=== PATIENT | female | born 1985 | race Caucasian/White ===

== ENCOUNTER 2020-08-05 10:04 | Outpatient (CLI) | payer OTHER, SELFPAY ==
--- NOTE | ~2020-08-05 | MR_ITS ---
EXAMINATION: MR lumbar spine wo con DATE: 08/05/2020 10:50 INDICATION: Lumbar neuropathy. TECHNIQUE: Magnetic resonance imaging (MRI) of the lumbar spine was performed without intravenous con trast. Sequences included sagittal T2-weighted FSE, sagittal T2-weighted FS FSE, sagittal T1-weighted FSE, and axial T2-weighted FSE. COMPARISON: Lumbar spine MRI 05/01/2019 FINDINGS: There is 8 degrees levocurvature of lumbar spine. Vertebral body heights are normal. There is mildly decreased disc height at L3-L4 and severely decreased disc height at L4-L5. The distal spin al cord signal intensity is normal. The conus medullaris is at L1. The following disc levels are spec ifically discussed: L1-L2: The disc does not extend beyond the endplate margin. There is mild bilateral facet joint osteo arthritis. There is no neural foraminal stenosis. There is no central canal stenosis. L2-L3: The disc does not extend beyond the endplate margin. There is moderate bilateral facet joint o steoarthritis. There is no neural foraminal stenosis. There is no central canal stenosis. L3-L4: The disc is bulging with superimposed right subarticular zone extrusion with mass effect on ri ght L4 nerve root. There is mild bilateral facet joint osteoarthritis. There is mild right and modera te left neural foraminal stenosis. There is mild central canal stenosis. L4-L5: The disc is bulging and has an annular fissure. There is moderate bilateral facet joint osteoa rthritis. There is moderate and mild left neural foraminal stenosis. There is mild central canal sten osis. L5-S1: There is a central protrusion. There is mild bilateral facet joint osteoarthritis. There is no neural foraminal stenosis. There is no central canal stenosis. IMPRESSION: 1. Slightly worsened severe lumbar spondylosis. Of note, an extrusion at L3-L4 exerts mass effect on right L4 nerve root. Reviewed, dictated and finalized at location A. N STUDIES PROFESSOR
== END 2020-08-05 10:05 | disposition home or self-care (01) ==
LOC: CHSIMG 10:05
PROVIDERS: PCP Family Medicine; Visit Provider Family Medicine
DX: M54.16 Radiculopathy, lumbar region (principal)
CPT/HCPCS: 72148

== ENCOUNTER 2021-01-15 09:34 | Outpatient (CLI) | payer OTHER, SELFPAY ==
--- NOTE | ~2021-01-15 | XR_ITS ---
EXAMINATION: XR knee RT 3V DATE: 01/15/2021 09:56 INDICATION: Right knee pain. TECHNIQUE: 3 views of right knee were obtained. COMPARISON: None. FINDINGS: Bone alignment is normal. No fracture. There is mild osteoarthritis of lateral compartment characterized by a tiny marginal osteophyte. No knee joint effusion. IMPRESSION: 1. Mild right knee osteoarthritis. Reviewed, dictated and finalized at location A.
== END 2021-01-15 09:35 | disposition home or self-care (01) ==
LOC: CHSIMG 09:36
PROVIDERS: PCP Family Medicine; Visit Provider Family Medicine
DX: M25.561 Pain in right knee (principal)
CPT/HCPCS: 73562

== ENCOUNTER → 2022-01-10 10:32 | Outpatient (CLI) | payer OTHER, SELFPAY ==
--- NOTE | ~2022-01-10 | MR_ITS ---
EXAMINATION: MR brain/brain stem wo/w con DATE: 01/10/2022 11:20 INDICATION: Paresthesias of skin. TECHNIQUE: Magnetic resonance imaging (MRI) of the brain and brainstem was performed without with 19 mL MultiHance intravenous contrast. COMPARISON: None. FINDINGS: There are greater than 30 total lesions of increased T2-weighted signal intensity in the br ain. Of these lesions, some are periventricular, some are juxtacortical, and none are infratentorial. None of the lesions enhance. There is no acute ischemic infarct or intracranial hemorrhage. The vent ricles are normal in size. The orbits are normal. There is mild mucosal thickening in the ethmoid sin uses. The mastoid air cells are normal. IMPRESSION: 1. Moderate nonspecific cerebral white matter disease. The differential diagnosis includes premature chronic small vessel ischemic disease (especially if the patient has cardiovascular risk factors), de myelinating disease such as multiple sclerosis, drug abuse, vasculitis, or reactive astrocytosis (gli osis) secondary to nonspecific etiology. Reviewed, dictated and finalized at location A. IMPRESSION: 1. Moderate nonspecific cerebral white matter disease. The differential diagnos is includes premature chronic small vessel ischemic disease (especially if the patient has cardiovascular risk factors), demyelinating disease such as multipl e sclerosis, drug abuse, vasculitis, or reactive astrocytosis (gliosis) seconda ry to nonspecific etiology.
== END ==
PROVIDERS: PCP Family Medicine; Visit Provider Family Medicine
DX: R20.2 Paresthesia of skin (principal); R90.82 White matter disease, unspecified
CPT/HCPCS: 70553; A9577

== ENCOUNTER 2022-01-15 20:00 | Outpatient (CLI) | payer OTHER, SELFPAY ==
--- NOTE | 2022-02-05 13:23 | WPDSLEEPSTUD ---
Sleep Study Date of Study: 01/15/22 Ordering Provider: Que De Leon MD Interpreting Physician: Misa Johns MD Sleep Study Type: Polysomnogram Height: 1.65 m Weight: 95.254 kg Body Mass Index: 34.9 Neck Circumference (inches): 15 [place]: 10 Reason for Sleep Study Fatigue, tiredness, was diagnosed with sleep apnea in the past Sleep History Vini Angulo is a 37-year-old female with a history of obstructive sleep apnea in the past. This improved but recently she has gained weight and has worsening fatigue. The fatigue is been present for several months and does not improve, no matter how much sleep she gets. She uses CPAP machine several years ago. She has started and anxiety medication. She rarely awakens from sleep feeling short of breath. She occasionally awakens at night with heartburn, belching or coughing. She rarely snores, rarely snores loudly enough that others complain about it. She occasionally has trouble sleeping with a cold. She rarely wakes up gasping for breath at night. She does not have breathing problems at night observed by others. She occasionally sweats excessively at night. She rarely notices her heart pounding or beating irregularly at night. She rarely falls asleep during the day and rarely falls asleep involuntarily. She never falls asleep while driving. She rarely has loss of muscle tone with strong emotion. She rarely has daytime difficulties due to excessive sleepiness. She does not feel paralyzed on waking or falling asleep and does not have vivid dreamlike scenes upon awakening or falling asleep. She does not feel afraid to go to sleep. She does not have nightmares. She rarely remembers her dreams. She occasionally has racing thoughts. She occasionally feels sad, depressed and anxious. She frequently has muscular tension. She does not notice parts of her body jerking and she does not kick at night. She occasionally has crawling and aching feelings in her legs. She frequently has leg pain at night. She rarely has any morning jaw pain. She rarely grinds her teeth during sleep. She occasionally is bothered by pain during the day, rarely awakened by pain at night. She frequently wakes up feeling stiff in the morning with sore achy muscles and pain in the neck and spine. She has headaches, concentration difficulties and she takes antacids regularly. Normal bedtime is Between 9:00 p.m. and 10:00 p.m., taking 30 minutes to 1 hour to fall asleep, typically waking 2-3 times at night to use the bathroom, let the dogs out, watch TV and take a snack. She is able to return to sleep within 30 minutes. She awakens for the day around 4:30 a.m.. On the weekends, bedtime is also 9-10 p.m. however she awakens later, 6-7 a.m.. She does not generally take naps. A short nap is not refreshing. She is drowsy in the morning for an hour. She feels better in the afternoon compared to other times of day. Habits: Never smoked tobacco. Caffeine 1 serving per day. No alcohol or recreational drugs. [facility] Past Medical History Medical History (Updated 02/06/22 @ 05:42 by Misa Johns MD) Acid reflux Anemia COPD (chronic obstructive pulmonary disease) Diabetes Hypertension IBS (irritable bowel syndrome) Surgical History Surgical History History of section History of gastric bypass [place] teeth removed Family History Family History Father Family history of obesity Family history of coronary artery disease, Onset Age: 54 Patient's father is Grandparent Family history of obesity Mother Family history of osteoporosis Family history of alcoholism Family history of arthritis Social History Social History Smoking status: Former smoker Second hand tobacco smoke exposure: No Sm
[2022-02-06 05:44] VITALS: BMI 34.9
== END 2022-01-17 00:40 | disposition home or self-care (01) ==
PROVIDERS: PCP Family Medicine; Visit Provider Family Medicine
DX: G47.30 Sleep apnea, unspecified (principal)
CPT/HCPCS: 95810

== ENCOUNTER 2022-01-16 08:34 | Outpatient (CLI) | payer OTHER, SELFPAY ==
--- NOTE | 2022-01-16 08:40 | PC.NURSE ---
Pt to room 202 amb per self. A&Ox3. Has no questions or concerns. Plan of care explained. Oriented to room. Call lagunas in reach. Reminded to call with needs.
[2022-01-16] MEDS: IRON SUCROSE COMPLEX 200 MG in SODIUM CHLORIDE 0.9% IV 250 ML 250 MG IVPB (09:05)
--- NOTE | 2022-01-16 10:21 | PC.NURSE ---
Venofer infused. Pt tolerated well. Has no complaints. Discharged to home amb per self.
== END 2022-01-16 08:35 | disposition home or self-care (01) ==
LOC: CHSTREATRM 08:39
PROVIDERS: PCP Family Medicine; Visit Provider Family Medicine
DX: D50.9 Iron deficiency anemia, unspecified (principal)
CPT/HCPCS: 96365; J1756; J7050

== ENCOUNTER 2022-01-31 08:28 | Outpatient (CLI) | payer OTHER, SELFPAY ==
[2022-01-31 08:47] VITALS: BMI 35.8
[2022-01-31 08:48] VITALS: BP 117/64; PULSE 72; RESP 14; TEMP 36.6; O2SAT 97
[2022-01-31] MEDS: IRON SUCROSE COMPLEX 200 MG in SODIUM CHLORIDE 0.9% IV 250 ML 166.67 MG IVPB (08:54)
--- NOTE | 2022-01-31 10:29 | PC.NURSE ---
Patient here for IV Venofer #2 of 4. Education given. No concerns voiced. IV Venofer administered. SEE MAR. Tolerated well. Safe exit of hospital. Will return Feb 20, 2022 0830 for #3.
== END 2022-01-31 08:29 | disposition home or self-care (01) ==
LOC: CHSTREATRM 08:31
PROVIDERS: PCP Family Medicine; Visit Provider Family Medicine
DX: D50.9 Iron deficiency anemia, unspecified (principal)
CPT/HCPCS: 96365; 96366; J1756; J7050

== ENCOUNTER 2022-02-20 08:25 | Outpatient (CLI) | payer OTHER, SELFPAY ==
[2022-02-20 08:35] LABS: Basophils Absolute Auto 0.03 K/mm3 (0.00-0.10); Basophils Percent Auto 0.4 % (0.0-1.0); Eosinophils Absolute Auto 0.16 K/mm3 (0.02-0.50); Eosinophils Percent Auto 2.4 % (1.0-6.0); Hematocrit 27.3 % (35.0-49.0); Hemoglobin 7.3 g/dL (12.0-15.0); Immature Granulocyte Absolute 0.03 K/mm3 (0.00-0.00); Immature Granulocyte Percent A 0.4 % (0.0-0.0); Lymphocytes Absolute Auto 2.29 K/mm3 (1.10-4.50); Mean Corpuscular HGB Conc 26.7 g/dL (32.0-36.0); Mean Corpuscular Hemoglobin 17.7 pg (27.0-31.0); Mean Corpuscular Volume 66.3 fL (78.0-102.0); Mean Platelet Volume 9.3 fl (9.2-11.8); Monocytes Percent Auto 7.4 % (2.0-11.0); Neutrophils Absolute Auto 3.7 K/mm3 (1.7-7.2); Neutrophils Percent Auto 55.4 % (50.0-70.0); Platelet Count Result 346 K/mm3 (150-420); Red Blood Count 4.12 M/mm3 (4.20-5.40); Red Cell Distribution Width 23.2 % (11.6-14.4); White Blood Count 6.7 K/mm3 (4.8-10.8)
[2022-02-20 08:45] VITALS: BMI 35.8
[2022-02-20 08:47] VITALS: BP 108/70; PULSE 56; RESP 14; TEMP 36.3; O2SAT 100
[2022-02-20] MEDS: IRON SUCROSE COMPLEX 200 MG in SODIUM CHLORIDE 0.9% IV 250 ML 166.67 MG IVPB (08:49)
--- NOTE | 2022-02-20 10:34 | PC.NURSE ---
Pt here for 3/4 IV venofer infusions.Has had no trouble with the first 2. No concerns voiced. IV venofer administered see AUG. Tolerated well. Safe exist of the hospital. Will return 03/05/22 at 0830 for 09/10.
== END 2022-02-20 08:26 | disposition home or self-care (01) ==
PROVIDERS: PCP Family Medicine; Visit Provider Family Medicine
DX: D50.9 Iron deficiency anemia, unspecified (principal)
CPT/HCPCS: 36415; 85025; 96365; 96366; J1756; J7050

== ENCOUNTER 2022-03-05 08:25 | Outpatient (CLI) | payer OTHER, SELFPAY ==
[2022-03-05 08:30] VITALS: BMI 35.8
[2022-03-05 08:38] LABS: Basophils Absolute Auto 0.03 K/mm3 (0.00-0.10); Basophils Percent Auto 0.4 % (0.0-1.0); Eosinophils Absolute Auto 0.12 K/mm3 (0.02-0.50); Eosinophils Percent Auto 1.6 % (1.0-6.0); Hematocrit 27.6 % (35.0-49.0); Hemoglobin 7.5 g/dL (12.0-15.0); Immature Granulocyte Absolute 0.04 K/mm3 (0.00-0.00); Immature Granulocyte Percent A 0.5 % (0.0-0.0); Lymphocytes Absolute Auto 2.12 K/mm3 (1.10-4.50); Lymphocytes Percent Auto 28.7 % (18.0-42.0); Mean Corpuscular HGB Conc 27.2 g/dL (32.0-36.0); Mean Corpuscular Hemoglobin 18.4 pg (27.0-31.0); Mean Corpuscular Volume 67.8 fL (78.0-102.0); Mean Platelet Volume 9.6 fl (9.2-11.8); Monocytes Percent Auto 6.8 % (2.0-11.0); Neutrophils Absolute Auto 4.6 K/mm3 (1.7-7.2); Platelet Count Result 380 K/mm3 (150-420); Red Blood Count 4.07 M/mm3 (4.20-5.40); Red Cell Distribution Width 24.6 % (11.6-14.4); White Blood Count 7.4 K/mm3 (4.8-10.8)
[2022-03-05 08:44] VITALS: BP 143/69; PULSE 72; RESP 14; TEMP 36.4; O2SAT 98
[2022-03-05] MEDS: IRON SUCROSE COMPLEX 200 MG in SODIUM CHLORIDE 0.9% IV 250 ML 166.67 MG IVPB (08:50)
== END 2022-03-05 08:26 | disposition home or self-care (01) ==
LOC: CHSTREATRM 08:28
PROVIDERS: PCP Family Medicine; Visit Provider Family Medicine
DX: D50.9 Iron deficiency anemia, unspecified (principal)
CPT/HCPCS: 36415; 85025; 96365; 96366; J1756; J7050

== ENCOUNTER 2022-04-02 01:32 | Day surgery (SDC) | payer OTHER, SELFPAY ==
[2022-03-18 14:47] VITALS: BMI 34.1
[2022-04-02 07:31] VITALS: BP 141/82; PULSE 71; RESP 20; TEMP 36.5; O2SAT 100
[2022-04-02] MEDS: LACTATED RINGERS 1,000 ML 150 ML IV CONT (07:51)
--- NOTE | 2022-04-02 07:53 | WPDANESEPPF ---
Anes - Initial Pre Proc Eval Procedure: Operation Date: 04/02/22 09:00 Proposed Procedures p Esophagogastroduodenoscopy & Colonoscopy - Rk Domingo MD Date/Time: 04/02/22 07:53 Surgeon: Rk Domingo MD Pre Op Diagnosis: LISA Patient Data Age: 37 Gender: F Height: 1.65 m Weight: 91.8 kg Last Vital Signs Temp 36.5 C 04/02/22 07:31 Pulse 71 04/02/22 07:31 Resp 20 04/02/22 07:31 BP 141/82 H 04/02/22 07:31 Pulse Ox 100 04/02/22 07:31 O2 Del Method Room Air 04/02/22 07:31 Allergies Allergy/AdvReac Type Severity Reaction Status Date / Time No Known Allergies Allergy Verified 04/02/22 07:31 Home Medications Medication Instructions Recorded Confirmed Type multivitamin,dr-xvev-onljlsly 1 tablet PO DAILY 05/24/20 03/18/22 History (Complete Multivitamin tablet) omeprazole 20 mg capsule,delayed 40 mg PO DAILY 05/24/20 03/18/22 History release sucralfate 1 gram tablet 1 g PO DAILY 05/24/20 03/18/22 History etonogestrel 68 mg subdermal 1 implant subdermal ONCE 08/14/20 03/18/22 History implant (Nexplanon) pregabalin 75 mg capsule (Lyrica) 75 mg PO TID 06/18/21 03/18/22 History escitalopram oxalate 5 mg tablet 10 mg PO DAILY 02/21/22 03/18/22 History (Lexapro) ropinirole 0.5 mg tablet 0.5 mg PO BID 02/21/22 03/18/22 History Patient hx anesthesia problems: none Family hx anesthesia problems: none Results Review: All pre-operative results and documents have been reviewed as part of the pre-operative evaluation. [facility] Past Medical History Medical History Acid reflux Anemia Blood in stool COPD (chronic obstructive pulmonary disease) Diabetes Hypertension IBS (irritable bowel syndrome) Iron deficiency anemia Surgical History Surgical History Gastric bypass status for obesity History of section History of gastric bypass [place] teeth removed Family History Family History Father Family history of obesity Family history of coronary artery disease, Onset Age: 54 Patient's father is Grandparent Family history of obesity Mother Family history of osteoporosis Family history of alcoholism Family history of arthritis Social History Social History Smoking status: Former smoker Tobacco type: cigarettes Second hand tobacco smoke exposure: No Smoking end date: 06/09/02 Alcohol intake: current Drinks per week: 5 Substance use: never Living arrangements: with family Spiritual care concerns: No Anes - Eval Final PreProcedure Day of Procedure 04/02/22 07:53 Patient weight: obese Heart: regular rate and rhythm Lungs: clear to auscultation Neurological: alert and oriented Last oral intake: >/= 8 hours ASA classification: II Emergent: no Anesthetic plan: proceed Anesthesia type and monitoring: general GIVS and standard monitoring Results Review: All pre-operative results and documents have been reviewed as part of the pre-operative evaluation. Informed Consent: The patient's anesthetic plan and its attendant risks and benefits were discussed with the patient/family/POA. Questions were solicited and answers provided to the satisfaction of the patient/family/POA.
--- NOTE | 2022-04-02 08:37 | PM.HPGS ---
History of Present Illness History of Present Illness Consent: Risks, benefits, and alternatives have been discussed and questions answered. Patient agrees to proceed with procedure. Chief complaint: LISA Narrative: David Siddiqi is a 37 year old female here for egd and colonoscopy, she had gastric bypass about 7 years ago, last EGD about 5 years ago ? curtis's and colonoscopy about 1 year ago and negative, she is using omeprazole and carafate. She is here because found to have LISA with hb mid 7 Review of Systems Constitutional: Constitutional: Denies headache(s) and Denies weakness Eyes: Eyes: Denies blurry vision ENT: Reports Normal hearing present, Denies headache(s) and Denies neck pain Cardiovascular: Cardiovascular: Denies chest pain and Denies dyspnea Respiratory: Respiratory: Denies dyspnea Gastrointestinal: Gastrointestinal: Reports no additional gastrointestinal complaints Genitourinary: Genitourinary: Denies dysuria Musculoskeletal: Musculoskeletal: Denies neck pain Integumentary/Breasts: Skin/Breast: Denies dry skin Neurologic: Reports Normal hearing present, Denies headache(s) and Denies weakness Psychiatric: Psychiatric: Denies anxiety Endocrine: Endocrine: Denies change in body appearance Hematologic/Lymphatic: Hematologic/Lymphatic: Denies easy bleeding Allergic/Immunologic: Allergic/Immunologic: Denies urticaria PMFSH Past Medical History Medical History Acid reflux Anemia Blood in stool COPD (chronic obstructive pulmonary disease) Diabetes Hypertension IBS (irritable bowel syndrome) Iron deficiency anemia Surgical History Surgical History Gastric bypass status for obesity History of section History of gastric bypass [place] teeth removed Family History Family History Father Family history of obesity Family history of coronary artery disease, Onset Age: 54 Patient's father is Grandparent Family history of obesity Mother Family history of osteoporosis Family history of alcoholism Family history of arthritis Social History Social History Smoking status: Former smoker Tobacco type: cigarettes Second hand tobacco smoke exposure: No Smoking end date: 06/09/02 Alcohol intake: current Drinks per week: 5 Substance use: never Living arrangements: with family Spiritual care concerns: No Meds Home Medications and Allergies Home Medications Medication Instructions Recorded Confirmed Type multivitamin,ob-nuqd-bqgedumx 1 tablet PO DAILY 05/24/20 03/18/22 History (Complete Multivitamin tablet) omeprazole 20 mg capsule,delayed 40 mg PO DAILY 05/24/20 03/18/22 History release sucralfate 1 gram tablet 1 g PO DAILY 05/24/20 03/18/22 History etonogestrel 68 mg subdermal 1 implant subdermal ONCE 08/14/20 03/18/22 History implant (Nexplanon) pregabalin 75 mg capsule (Lyrica) 75 mg PO TID 06/18/21 03/18/22 History escitalopram oxalate 5 mg tablet 10 mg PO DAILY 02/21/22 03/18/22 History (Lexapro) ropinirole 0.5 mg tablet 0.5 mg PO BID 02/21/22 03/18/22 History Allergies Allergy/AdvReac Type Severity Reaction Status Date / Time No Known Allergies Allergy Verified 04/02/22 07:31 Vital Signs Vital Signs - 24 hr 04/02/22 07:31 Temperature 97.7 F Pulse Rate 71 Respiratory Rate 20 Blood Pressure 141/82 H Pulse Oximetry 100 Oxygen Delivery Room Air Exam Const: General: comfortable and no acute distress HENMT: Face/Nose/Sinus: Normal nares present Eyes: General: appearance normal, both eyes and all related structures Neck: Neck: no JVD Resp: Auscultation: clear to auscultation bilaterally Cardio: Rate: regular rate Rhythm: regular rhythm GI: Inspection: non-dis
--- NOTE | 2022-04-02 08:50 | SUR.OPER ---
EGD end 843 COLONOSCOPY START 848
[2022-04-02 09:01] VITALS: BP 134/77; PULSE 58; RESP 18; O2SAT 100
[2022-04-02 09:11] VITALS: BP 118/86; PULSE 60; RESP 18; O2SAT 100
[2022-04-02 09:21] VITALS: BP 139/99; PULSE 50; RESP 18; O2SAT 100
== END 2022-04-02 09:26 | disposition home or self-care (01) ==
PROVIDERS: PCP Family Medicine; Visit Provider Internal Medicine Gastroenterology
PROC: 0DJ08ZZ Inspection of Upper Intestinal Tract, Via Natural or Artificial Opening Endoscopic (ICD-10-PCS; CPT 43235; principal; 2022-04-02 09:00)
DX: D50.9 Iron deficiency anemia, unspecified (principal); K57.30 Diverticulosis of large intestine without perforation or abscess without bleeding; K64.8 Other hemorrhoids; K28.9 Gastrojejunal ulcer, unspecified as acute or chronic, without hemorrhage or perforation; Z98.84 Bariatric surgery status; K21.9 Gastro-esophageal reflux disease without esophagitis; K92.1 Melena; J44.9 Chronic obstructive pulmonary disease, unspecified; E11.9 Type 2 diabetes mellitus without complications; I10 Essential (primary) hypertension; K58.9 Irritable bowel syndrome, unspecified; Z87.891 Personal history of nicotine dependence; E66.9 Obesity, unspecified; Z68.33 Body mass index [BMI] 33.0-33.9, adult
CPT/HCPCS: 45378; 43239; 88305; 88342; J2704; J7120

== ENCOUNTER 2022-05-10 08:13 | Outpatient (CLI) | payer OTHER, SELFPAY ==
[2022-05-10 08:21] VITALS: BMI 35.8
[2022-05-10 08:29] LABS: Basophils Absolute Auto 0.03 K/mm3 (0.00-0.10); Basophils Percent Auto 0.4 % (0.0-1.0); Eosinophils Absolute Auto 0.17 K/mm3 (0.02-0.50); Eosinophils Percent Auto 2.4 % (1.0-6.0); Hematocrit 26.9 % (35.0-49.0); Hemoglobin 7.5 g/dL (12.0-15.0); Immature Granulocyte Absolute 0.03 K/mm3 (0.00-0.00); Immature Granulocyte Percent A 0.4 % (0.0-0.0); Lymphocytes Absolute Auto 2.12 K/mm3 (1.10-4.50); Lymphocytes Percent Auto 29.9 % (18.0-42.0); Mean Corpuscular HGB Conc 27.9 g/dL (32.0-36.0); Mean Corpuscular Hemoglobin 18.8 pg (27.0-31.0); Mean Corpuscular Volume 67.4 fL (78.0-102.0); Monocytes Absolute Auto 0.53 K/mm3 (0.10-0.90); Monocytes Percent Auto 7.5 % (2.0-11.0); Neutrophils Absolute Auto 4.2 K/mm3 (1.7-7.2); Neutrophils Percent Auto 59.4 % (50.0-70.0); Platelet Count Result 309 K/mm3 (150-420); Red Blood Count 3.99 M/mm3 (4.20-5.40); White Blood Count 7.1 K/mm3 (4.8-10.8)
[2022-05-10 08:30] VITALS: BP 136/56; PULSE 66; RESP 14; TEMP 36.6; O2SAT 98
[2022-05-10] MEDS: IRON SUCROSE COMPLEX 200 MG in SODIUM CHLORIDE 0.9% IV 250 ML 125 MG IVPB (08:30)
--- NOTE | 2022-05-10 11:39 | PC.NURSE ---
Patient here for #1 of 4 biweekly IV Venofer infusions. Education given. No concerns voiced. Reports has had many Iron infusions. IV Venofer administered. SEE MAR. Tolerated well. Will return Fri05/24/22 at 0800 for #2. Safe exit of hospital.
== END 2022-05-10 08:14 | disposition home or self-care (01) ==
LOC: CHSTREATRM 08:16
PROVIDERS: PCP Family Medicine; Visit Provider Family Medicine
DX: D50.9 Iron deficiency anemia, unspecified (principal)
CPT/HCPCS: 36415; 85025; 96365; 96366; J1756; J7050

== ENCOUNTER 2022-05-24 08:14 | Outpatient (CLI) | payer OTHER, SELFPAY ==
[2022-05-24 08:24] VITALS: BMI 35.8
[2022-05-24] MEDS: IRON SUCROSE COMPLEX 200 MG in SODIUM CHLORIDE 0.9% IV 250 ML 125 MG IVPB (08:30)
[2022-05-24 08:31] LABS: Basophils Absolute Auto 0.03 K/mm3 (0.00-0.10); Basophils Percent Auto 0.4 % (0.0-1.0); Eosinophils Percent Auto 2.6 % (1.0-6.0); Hematocrit 29.4 % (35.0-49.0); Hemoglobin 8.2 g/dL (12.0-15.0); Immature Granulocyte Absolute 0.04 K/mm3 (0.00-0.00); Immature Granulocyte Percent A 0.5 % (0.0-0.0); Lymphocytes Absolute Auto 2.84 K/mm3 (1.10-4.50); Lymphocytes Percent Auto 36.5 % (18.0-42.0); Mean Corpuscular HGB Conc 27.9 g/dL (32.0-36.0); Mean Corpuscular Volume 68.1 fL (78.0-102.0); Mean Platelet Volume 9.6 fl (9.2-11.8); Monocytes Absolute Auto 0.48 K/mm3 (0.10-0.90); Monocytes Percent Auto 6.2 % (2.0-11.0); Neutrophils Absolute Auto 4.2 K/mm3 (1.7-7.2); Neutrophils Percent Auto 53.8 % (50.0-70.0); Platelet Count Result 399 K/mm3 (150-420); Red Blood Count 4.32 M/mm3 (4.20-5.40); Red Cell Distribution Width 21.4 % (11.6-14.4); White Blood Count 7.8 K/mm3 (4.8-10.8)
[2022-05-24 08:33] VITALS: BP 137/64; PULSE 78; RESP 14; TEMP 36.4; O2SAT 99
--- NOTE | 2022-05-24 10:52 | PC.NURSE ---
Patient here for IV Venofer #2 of 4 q 2 weeks. No concerns. IV Venofer administered. SEE MAR. Tolerated well. Safe exit of Hospital. Will return 06/06/22 at 0800.
== END 2022-05-24 08:15 | disposition home or self-care (01) ==
LOC: CHSTREATRM 08:16
PROVIDERS: PCP Family Medicine; Visit Provider Family Medicine
DX: D64.9 Anemia, unspecified (principal)
CPT/HCPCS: 36415; 85025; 96365; 96366; J1756; J7050

== ENCOUNTER 2022-06-07 08:09 | Outpatient (CLI) | payer OTHER, SELFPAY ==
[2022-06-07 08:22] VITALS: BMI 35.8
[2022-06-07 08:40] VITALS: BP 130/71; PULSE 72; RESP 14; TEMP 36.3; O2SAT 97
[2022-06-07] MEDS: IRON SUCROSE COMPLEX 200 MG in SODIUM CHLORIDE 0.9% IV 250 ML 125 MG IVPB (08:40)
[2022-06-07 08:48] LABS: Basophils Absolute Auto 0.04 K/mm3 (0.00-0.10); Basophils Percent Auto 0.6 % (0.0-1.0); Eosinophils Absolute Auto 0.21 K/mm3 (0.02-0.50); Eosinophils Percent Auto 2.9 % (1.0-6.0); Hematocrit 29.1 % (35.0-49.0); Hemoglobin 8.4 g/dL (12.0-15.0); Immature Granulocyte Absolute 0.03 K/mm3 (0.00-0.00); Immature Granulocyte Percent A 0.4 % (0.0-0.0); Lymphocytes Absolute Auto 2.47 K/mm3 (1.10-4.50); Lymphocytes Percent Auto 34.3 % (18.0-42.0); Mean Corpuscular HGB Conc 28.9 g/dL (32.0-36.0); Mean Corpuscular Volume 69.1 fL (78.0-102.0); Monocytes Absolute Auto 0.39 K/mm3 (0.10-0.90); Monocytes Percent Auto 5.4 % (2.0-11.0); Neutrophils Absolute Auto 4.1 K/mm3 (1.7-7.2); Neutrophils Percent Auto 56.4 % (50.0-70.0); Platelet Count Result 287 K/mm3 (150-420); Red Blood Count 4.21 M/mm3 (4.20-5.40); Red Cell Distribution Width 23.8 % (11.6-14.4); White Blood Count 7.2 K/mm3 (4.8-10.8)
--- NOTE | 2022-06-07 10:35 | PC.NURSE ---
Patient here for #3 of 4 IV Venofer infusions. No concerns voiced. IV Venofer administered. SEE MAR. Tolerated well. Safe exit of hospital. Will return 06/21/21 at 0830 for #4.
== END 2022-06-07 08:10 | disposition home or self-care (01) ==
PROVIDERS: PCP Family Medicine; Visit Provider Family Medicine
DX: D50.9 Iron deficiency anemia, unspecified (principal)
CPT/HCPCS: 36415; 85025; 96365; 96366; J1756; J7050

== ENCOUNTER 2022-06-21 08:22 | Outpatient (CLI) | payer OTHER, SELFPAY ==
[2022-06-21 08:26] VITALS: BMI 35.8
[2022-06-21] MEDS: IRON SUCROSE COMPLEX 200 MG in SODIUM CHLORIDE 0.9% IV 250 ML 125 MG IVPB (08:35)
[2022-06-21 08:39] LABS: Basophils Absolute Auto 0.03 K/mm3 (0.00-0.10); Basophils Percent Auto 0.4 % (0.0-1.0); Eosinophils Absolute Auto 0.15 K/mm3 (0.02-0.50); Eosinophils Percent Auto 2.2 % (1.0-6.0); Hemoglobin 9.5 g/dL (12.0-15.0); Immature Granulocyte Absolute 0.06 K/mm3 (0.00-0.00); Immature Granulocyte Percent A 0.9 % (0.0-0.0); Lymphocytes Absolute Auto 1.98 K/mm3 (1.10-4.50); Lymphocytes Percent Auto 28.9 % (18.0-42.0); Mean Corpuscular HGB Conc 28.8 g/dL (32.0-36.0); Mean Corpuscular Hemoglobin 20.3 pg (27.0-31.0); Mean Corpuscular Volume 70.7 fL (78.0-102.0); Mean Platelet Volume 10.1 fl (9.2-11.8); Monocytes Absolute Auto 0.46 K/mm3 (0.10-0.90); Monocytes Percent Auto 6.7 % (2.0-11.0); Neutrophils Absolute Auto 4.2 K/mm3 (1.7-7.2); Neutrophils Percent Auto 60.9 % (50.0-70.0); Platelet Count Result 348 K/mm3 (150-420); Red Blood Count 4.67 M/mm3 (4.20-5.40); Red Cell Distribution Width 25.5 % (11.6-14.4); White Blood Count 6.8 K/mm3 (4.8-10.8)
[2022-06-21 08:41] VITALS: BP 128/69; PULSE 78; RESP 14; TEMP 36.6; O2SAT 99
--- NOTE | 2022-06-21 10:36 | PC.NURSE ---
Patient here for #4 of 4 IV Venofer infusions. No concerns voiced. IV Venofer administered. see MAR. Safe exit of hospital.
== END 2022-06-21 08:23 | disposition home or self-care (01) ==
LOC: CHSTREATRM 08:25
PROVIDERS: PCP Family Medicine; Visit Provider Family Medicine
DX: D50.9 Iron deficiency anemia, unspecified (principal)
CPT/HCPCS: 36415; 85025; 96365; 96366; 96367; J1756; J7050

== ENCOUNTER 2022-09-23 07:21 | Outpatient (CLI) | payer OTHER, SELFPAY ==
[2022-09-23 07:32] LABS: Basophils Absolute Auto 0.04 K/mm3 (0.00-0.10); Basophils Percent Auto 0.5 % (0.0-1.0); Eosinophils Absolute Auto 0.19 K/mm3 (0.02-0.50); Eosinophils Percent Auto 2.3 % (1.0-6.0); Hemoglobin 10.4 g/dL (12.0-15.0); Immature Granulocyte Absolute 0.03 K/mm3 (0.00-0.00); Immature Granulocyte Percent A 0.4 % (0.0-0.0); Lymphocytes Absolute Auto 2.36 K/mm3 (1.10-4.50); Lymphocytes Percent Auto 28.1 % (18.0-42.0); Mean Corpuscular HGB Conc 29.7 g/dL (32.0-36.0); Mean Corpuscular Hemoglobin 23.2 pg (27.0-31.0); Mean Corpuscular Volume 78.1 fL (78.0-102.0); Mean Platelet Volume 9.9 fl (9.2-11.8); Monocytes Absolute Auto 0.54 K/mm3 (0.10-0.90); Monocytes Percent Auto 6.4 % (2.0-11.0); Neutrophils Absolute Auto 5.2 K/mm3 (1.7-7.2); Neutrophils Percent Auto 62.3 % (50.0-70.0); Platelet Count Result 346 K/mm3 (150-420); Red Blood Count 4.48 M/mm3 (4.20-5.40); Red Cell Distribution Width 18.1 % (11.6-14.4); White Blood Count 8.4 K/mm3 (4.8-10.8)
[2022-09-23 08:47] LABS: Ferritin 8 ng/mL (8-252); Iron 44 ug/dL (50-170); Percent Iron Saturation 9 % (12-57)
== END 2022-09-23 07:22 | disposition home or self-care (01) ==
LOC: CHSLAB 07:22
PROVIDERS: PCP Family Medicine; Visit Provider Family Medicine
DX: D50.9 Iron deficiency anemia, unspecified (principal); I10 Essential (primary) hypertension
CPT/HCPCS: 36415; 82728; 83540; 83550; 85025

== ENCOUNTER 2022-09-26 08:03 | Outpatient (CLI) | payer OTHER, SELFPAY ==
--- NOTE | ~2022-09-26 | CT_ITS ---
EXAMINATION: CT abdomen pelvis w con DATE: 09/26/2022 09:04 INDICATION: Abdominal cramping with nausea and vomiting and elevated lipase. Fatigue and anemia with blood in stools. TECHNIQUE: Computed tomography (CT) of the abdomen and pelvis was performed with 100 mL Omnipaque-350 intravenous contrast. Automated exposure control and iterative reconstruction technique were employe d. The dose-length product was 1257.74 mGy-cm. COMPARISON: None FINDINGS: Minimal discoid atelectasis at the lingula. Heart size is normal. No pericardial or pleural effusion. Small sliding-type hiatal hernia. Postoperative change of an antecolic Ricardo-en-Y gastric bypass proc edure. There appears to be an ulceration with inflammatory stranding of the right limb located within 2 cm of the gastrojejunal anastomosis. Peripherally corticated heterotopic ossification likely relat ed to fat necrosis overlying the anterior margin of the liver. Liver, gallbladder, spleen, pancreas, bilateral adrenal glands and kidneys are normal. Small fat-containing umbilical hernia. Mild divertic ulosis along the descending colon without adjacent inflammatory change to suggest diverticulitis. No bowel obstruction. Normal appendix. Bladder, uterus and bilateral ovaries are unremarkable. There is a multi lobulated complex cystic mass which measures 8.8 x 5.7 x 6.6 cm in the posterior inf erior right pelvis, the cephalad margin which is positioned in the perirectal fat but which appears t o extend into and across the ileocolic changes muscle with a component of the lesion extending into t he subcutaneous fat along the caudal right side of the gluteal cleft. Many of the lobular components of the lesion demonstrate central fluid attenuation however there has components located closer to th e tip of the coccyx which demonstrate higher attenuation, unclear whether complex fluid or soft tissu e. No free intraperitoneal gas or fluid. No pathologically enlarged abdominal or pelvic lymphadenopat hy. Mild lumbar levocurvature with severe spondylosis. IMPRESSION: 1. Ricardo-en-Y gastric bypass procedure with inflammatory stranding surrounding an ulceration at the pr oximal Ricardo limb within 2 cm the gastrojejunal anastomosis. No abscess or free intraperitoneal gas. 2. Indeterminate 8.8 x 5.7 x 6.6 cm right perirectal complex cystic mass. Differential would include a tail gut cyst, lymphangioma or other vascular malformation, teratoma, rectal duplication cyst or mu cinous adenocarcinoma of the rectum. Consider further evaluation with pre and postcontrast MRI to det ermine whether there are solid enhancing soft tissue components. 3. Small sliding-type hiatal hernia. 4. Small Fat-containing umbilical hernia. Reviewed, dictated and finalized at location A. IMPRESSION: 1. Ricardo-en-Y gastric bypass procedure with inflammatory stranding surrounding a n ulceration at the proximal Ricardo limb within 2 cm the gastrojejunal anastomosi s. No abscess or free intraperitoneal gas. 2. Indeterminate 8.8 x 5.7 x 6.6 cm right perirectal complex cystic mass. Diffe rential would include a tail gut cyst, lymphangioma or other vascular malformat ion, teratoma, rectal duplication cyst or mucinous adenocarcinoma of the rectum . Consider further evaluation with pre and postcontrast MRI to determine whethe r there are solid enhancing soft tissue components. 3. Small sliding-type hiatal hernia. 4. Small Fat-containing umbilical hernia.
[2022-09-26 08:50] LABS: Estimated Glomerular Filt Rate > 60
== END 2022-09-26 08:04 | disposition home or self-care (01) ==
LOC: CHSIMG 08:06
PROVIDERS: PCP Family Medicine; Visit Provider Family Medicine
DX: R74.8 Abnormal levels of other serum enzymes (principal); Z98.84 Bariatric surgery status; R19.09 Other intra-abdominal and pelvic swelling, mass and lump; K44.9 Diaphragmatic hernia without obstruction or gangrene; K42.9 Umbilical hernia without obstruction or gangrene
CPT/HCPCS: 74177; Q9967

== ENCOUNTER 2022-11-30 06:56 | Outpatient (CLI) | payer OTHER, SELFPAY ==
--- NOTE | ~2022-11-30 | MR_ITS ---
MRI of the abdomen: Clinical indication: Abdominal pain, history of bariatric surgery. Technique: Coronal SSFSE ARC, WATER:coronal LAVA-FLEX, Coronal 2D FIESTA FatSat, Axial SSFSE BH ARC, Axial 3D DualEcho BH, Axial SSFSE-IR, Axial DWI b=500, Axial 2D FIESTA FatSat, pre and dynamic postco ntrast Axial LAVA ARC, postcontrast Coronal In and Opposed phase LAVA FLEX.. Following intravenous ad ministration of 20 cc MultiHance gadolinium, T1-weighted fat-sat imaging was performed in the axial a nd coronal planes. Findings: Gallbladder is unremarkable. The common bile duct is normal in course and caliber. No filli ng defects are seen within the CBD. No evidence of intrahepatic biliary ductal dilatation. The pancre atic duct is normal in size. Liver, spleen, pancreas, adrenals, kidneys appear normal. The aorta and the paraaortic regions appear normal. No abnormal postcontrast enhancement seen. Impression: No significant abnormality identified. Reviewed, dictated and finalized at [facility]. Impression: No significant abnormality identified.
--- NOTE | ~2022-11-30 | MR_ITS ---
MRI of the pelvis CLINICAL HISTORY: Pelvic mass COMPARISON: Prior CT dated 09/26/2022 TECHNIQUE: Coronal STIR images, sagittal T1-weighted images, and axial T1-weighted, T1 fat-sat, and T 2 fat-sat images were performed. Following intravenous administration of 20 cc MultiHance gadolinium, T1-weighted fat-sat imaging was performed in the axial, coronal, and sagittal planes. FINDINGS: In the low right side of the pelvis, again identified is a multiloculated cystic mass along the right side of the perirectal region extending into the right ischiorectal fossa, just posterior to the right side of the uterus. Lesion measures up to approximately 7.6 x 4.8 x 9.2 cm in extent. Th ere is thin enhancement of the kwong of the cystic lesion. No solid or nodular enhancement identified . Uterus and ovaries are unremarkable. No ascites. Urinary bladder unremarkable. No lymphadenopathy suze dent. Small fat-containing umbilical hernia noted. IMPRESSION: 7.6 x 4.8 x 9.2 cm multiloculated cystic mass in the low right pelvis/perirectal region, essentially unchanged as compared to prior CT scan. No solid or nodular enhancing components are seen. Findings s uggest a benign lesion, such as lymphangioma or other vascular malformation, duplication cyst, or oth er benign cystic mass. Malignant neoplastic lesion felt to be unlikely. Consider follow-up exam to re assess. Reviewed, dictated and finalized at location M. IMPRESSION: 7.6 x 4.8 x 9.2 cm multiloculated cystic mass in the low right pelvis/perirecta l region, essentially unchanged as compared to prior CT scan. No solid or nodul ar enhancing components are seen. Findings suggest a benign lesion, such as lym phangioma or other vascular malformation, duplication cyst, or other benign cys tic mass. Malignant neoplastic lesion felt to be unlikely. Consider follow-up e xam to reassess.
== END 2022-11-30 06:57 | disposition home or self-care (01) ==
LOC: CHSIMG 06:58
PROVIDERS: PCP Family Medicine
DX: R10.9 Unspecified abdominal pain (principal); R19.00 Intra-abdominal and pelvic swelling, mass and lump, unspecified site; Z98.84 Bariatric surgery status
CPT/HCPCS: 72197; 74183; A9577

== ENCOUNTER 2023-09-22 07:22 | Outpatient (CLI) | payer OTHER, SELFPAY ==
[2023-09-22 07:48] LABS: Basophils Absolute Auto 0.03 K/mm3 (0.00-0.10); Basophils Percent Auto 0.4 % (0.0-1.0); Eosinophils Percent Auto 1.5 % (1.0-6.0); Hematocrit 30.5 % (35.0-49.0); Hemoglobin 8.6 g/dL (12.0-15.0); Immature Granulocyte Absolute 0.03 K/mm3 (0.00-0.00); Immature Granulocyte Percent A 0.4 % (0.0-0.0); Immature Reticulocyte Fraction 23.8 % (2.0-16.52); Lymphocytes Absolute Auto 2.28 K/mm3 (1.10-4.50); Lymphocytes Percent Auto 33.1 % (18.0-42.0); Mean Corpuscular HGB Conc 28.2 g/dL (32-36); Mean Corpuscular Hemoglobin 19.9 pg (27.0-31.0); Mean Corpuscular Volume 70.4 fL (78.0-102.0); Monocytes Absolute Auto 0.45 K/mm3 (0.10-0.90); Monocytes Percent Auto 6.5 % (2.0-11.0); Neutrophils Absolute Auto 3.99 K/mm3 (1.70-7.20); Neutrophils Percent Auto 58.1 % (50.0-70.0); Platelet Count Result 295 K/mm3 (150-420); Red Blood Count 4.33 M/mm3 (4.20-5.40); Red Cell Distribution Width 17.4 % (11.6-14.4); Reticulocyte Hemoglobin Conten 21.7 pg (28.0-35.0); Reticulocyte Percent 1.08 % (0.50-1.50); Reticulocytes Absolute 0.05 M/mm3 (0.02-0.10); White Blood Count 6.9 K/mm3 (4.8-10.8)
[2023-09-22 09:12] LABS: Alanine Aminotransferase 27 U/L (14-59); Albumin Level 3.7 g/dL (3.4-5.0); Alkaline Phosphatase 104 U/L (46-116); Anion Gap 7 mmol/L (4-12); Aspartate Amino Transferase 19 U/L (15-37); Bilirubin,Total 0.3 mg/dL (0.00-1.00); Blood Urea Nitrogen 10 mg/dL (7-18); Calcium 8.5 mg/dL (8.5-10.1); Carbon Dioxide 29 mmol/L (21-32); Chloride 105 mmol/L (98-108); Cholesterol 160 mg/dL (0-200); Estimated Glomerular Filt Rate > 60; Ferritin 9 ng/mL (8-252); Glucose 82 mg/dL (70-99); HDL Direct 68 mg/dL (40-60); Iron 30 ug/dL (50-170); LDL Cholesterol Calculated 86 mg/dL (<130); Osmolality Calculated 290 mOsm/kg (285-295); Percent Iron Saturation 7 % (12-57); Sodium 141 mmol/L (136-145); Total Protein 6.6 g/dL (6.4-8.2); Triglycerides 31 mg/dL (0-150); Vitamin B12 1653 pg/mL (193-986)
[2023-09-22 09:18] LABS: Folic Acid > 20.0 ng/mL (8.6->20)
[2023-09-24 10:44] LABS: Vitamin D 25 Hydroxy 30 ng/mL (30-100)
[2023-09-24 15:34] LABS: Zinc 77 mcg/dL (60-130)
[2023-09-27 07:18] LABS: Vitamin B1 49 nmol/L (8-30)
== END 2023-09-22 07:23 | disposition home or self-care (01) ==
LOC: CHSLAB 07:26
PROVIDERS: PCP Family Medicine
DX: Z00.00 Encounter for general adult medical examination without abnormal findings (principal); R53.83 Other fatigue; Z98.84 Bariatric surgery status; K90.9 Intestinal malabsorption, unspecified; E61.1 Iron deficiency
CPT/HCPCS: 36415; 80053; 80061; 82306; 82525; 82607; 82728; 82746; 83540; 83550; 83735; 84425; 84630; 85025; 85046

== ENCOUNTER 2023-10-21 08:29 | Outpatient (CLI) | payer OTHER, SELFPAY ==
--- NOTE | 2023-10-21 08:35 | PC.NURSE ---
Here for OP infusion
[2023-10-21 08:47] VITALS: BMI 36.6
[2023-10-21 08:48] VITALS: BP 115/78; PULSE 96; RESP 18; TEMP 36.6; O2SAT 98
[2023-10-21] MEDS: IRON SUCROSE COMPLEX 200 MG in SODIUM CHLORIDE 0.9% IV 250 ML 125 MG IVPB (09:06)
[2023-10-21 11:15] VITALS: BP 121/76; PULSE 66; RESP 18
--- NOTE | 2023-10-21 11:21 | PC.NURSE ---
tolerated iron well, iv removed with cathlon intact, dc to home
== END 2023-10-21 08:30 | disposition home or self-care (01) ==
LOC: CHSTREATRM 08:31
PROVIDERS: PCP Family Medicine; Visit Provider Family Medicine
DX: D50.9 Iron deficiency anemia, unspecified (principal)
CPT/HCPCS: 96365; 96366; J1756; J7050

== ENCOUNTER 2023-11-07 08:23 | Outpatient (CLI) | payer OTHER, SELFPAY ==
[2023-11-07 08:39] VITALS: BP 121/76; PULSE 76; RESP 14; TEMP 36.4; O2SAT 99; BMI 36.6
[2023-11-07] MEDS: IRON SUCROSE COMPLEX 200 MG in SODIUM CHLORIDE 0.9% IV 250 ML 125 MG IVPB (08:50)
[2023-11-07 11:06] VITALS: BP 129/69; PULSE 80; RESP 14; O2SAT 98
--- NOTE | 2023-11-07 11:07 | PC.NURSE ---
Patient was here for #2 of 4 Venofer infusions every 2 weeks. Education given. NO concerns voiced. IV Venofer administered. SEE MAR. Tolerated well. Will return 11/21/23 at 0830 for#3 of 4 Venofer infusion. Safe exit of hospital per self/ambulatory.
== END 2023-11-07 08:24 | disposition home or self-care (01) ==
PROVIDERS: PCP Family Medicine; Visit Provider Family Medicine
DX: D50.9 Iron deficiency anemia, unspecified (principal)
CPT/HCPCS: 96365; 96366; J1756

== ENCOUNTER 2023-11-21 08:26 | Outpatient (CLI) | payer OTHER, SELFPAY ==
[2023-11-21 08:35] VITALS: BP 134/74; PULSE 72; RESP 14; TEMP 36.3; O2SAT 99; BMI 36.6
[2023-11-21] MEDS: IRON SUCROSE COMPLEX 200 MG in SODIUM CHLORIDE 0.9% IV 250 ML 125 MG IVPB (08:40)
[2023-11-21 11:02] VITALS: BP 136/70; PULSE 78; RESP 14
--- NOTE | 2023-11-21 11:04 | PC.NURSE ---
Patient here for #3 of 4 IV Venofer infusion. Education given. No concerns voiced. IV Venofer administered. see MAR. Tolerated well. Safe exit of hospital per self/ambulatory. Will return 12/05/23 at 1400 for next #4 of 4 Venofer infusion.
== END 2023-11-21 08:27 | disposition home or self-care (01) ==
PROVIDERS: PCP Family Medicine; Visit Provider Family Medicine
DX: D50.9 Iron deficiency anemia, unspecified (principal)
CPT/HCPCS: 96365; 96366; J1756; J7050

== ENCOUNTER 2023-12-05 14:18 | Outpatient (CLI) | payer OTHER, SELFPAY ==
[2023-12-05 14:25] VITALS: BP 134/77; PULSE 115; RESP 18; TEMP 36.1; O2SAT 95
[2023-12-05] MEDS: IRON SUCROSE COMPLEX 200 MG in SODIUM CHLORIDE 0.9% IV 250 ML 125 MG IVPB (14:42)
[2023-12-05 14:46] VITALS: BMI 37.8
[2023-12-05 16:58] VITALS: BP 115/75; PULSE 77; RESP 16; TEMP 36.3; O2SAT 96
--- NOTE | 2023-12-05 16:59 | PC.NURSE ---
Patient's IV infusion completed. Patient denies any c/o. IV d/c'd with cath intact. IV site care explained to patient. States understanding. Patient able to ambulate to car.
== END 2023-12-05 14:19 | disposition home or self-care (01) ==
LOC: CHSTREATRM 14:19
PROVIDERS: PCP Family Medicine; Visit Provider Family Medicine
DX: D50.9 Iron deficiency anemia, unspecified (principal)
CPT/HCPCS: 96365; 96366; J1756; J7050

== ENCOUNTER 2023-12-06 09:24 | Outpatient (CLI) | payer OTHER, SELFPAY ==
--- NOTE | ~2023-12-06 | US_ITS ---
EXAMINATION: US pelvic complete w TV DATE: 12/06/2023 10:25 INDICATION: Family history of malignant neoplasm of ovary. Abdominal distention. TECHNIQUE: Multiple transabdominal and transvaginal sonographic images of the pelvis were obtained. COMPARISON: Pelvis MRI 11/30/2022 FINDINGS: TRANSABDOMINAL ULTRASOUND: The uterus measures 7.0 x 3.1 x 5.3 cm. There is no free fluid in the pelvis. TRANSVAGINAL ULTRASOUND: The endometrial complex measures 2 mm in thickness. There is a nabothian cyst in the cervix. There is a 7 mm submucosal fibroid. The right ovary measures 3.6 x 2.7 x 3.0 cm. The left ovary measures 3.7 x 2.1 x 2.3 cm. There is normal vascular flow in the ovaries. There is an 8.6 x 6.4 x 6.4 cm cyst laquita r the rectum. IMPRESSION: 1. Chronic 8.6 cm cyst near the rectum, likely a venous malformation. Reviewed, dictated and finalized at location E.
== END 2023-12-06 09:25 | disposition home or self-care (01) ==
LOC: ANHIMG 09:27
PROVIDERS: PCP Family Medicine; Visit Provider Nurse Practitioner Family
DX: R14.0 Abdominal distension (gaseous) (principal); Z80.41 Family history of malignant neoplasm of ovary; K62.89 Other specified diseases of anus and rectum
CPT/HCPCS: 76830; 76856

== ENCOUNTER 2024-01-15 07:16 | Outpatient (CLI) | payer OTHER, SELFPAY ==
[2024-01-15 07:28] LABS: Basophils Absolute Auto 0.04 K/mm3 (0.00-0.10); Basophils Percent Auto 0.6 % (0.0-1.0); Eosinophils Absolute Auto 0.14 K/mm3 (0.02-0.50); Eosinophils Percent Auto 2.1 % (1.0-6.0); Immature Granulocyte Absolute 0.03 K/mm3 (0.00-0.00); Immature Granulocyte Percent A 0.4 % (0.0-0.0); Lymphocytes Absolute Auto 2.21 K/mm3 (1.10-4.50); Lymphocytes Percent Auto 32.6 % (18.0-42.0); Mean Corpuscular HGB Conc 30.8 g/dL (32-36); Mean Corpuscular Hemoglobin 24.9 pg (27.0-31.0); Mean Corpuscular Volume 80.9 fL (78.0-102.0); Mean Platelet Volume 10.4 fl (9.2-11.8); Monocytes Absolute Auto 0.41 K/mm3 (0.10-0.90); Monocytes Percent Auto 6.1 % (2.0-11.0); Neutrophils Absolute Auto 3.94 K/mm3 (1.70-7.20); Neutrophils Percent Auto 58.2 % (50.0-70.0); Platelet Count Result 272 K/mm3 (150-420); Red Blood Count 4.82 M/mm3 (4.20-5.40); Red Cell Distribution Width 23.7 % (11.6-14.4); White Blood Count 6.8 K/mm3 (4.8-10.8)
[2024-01-15 08:18] LABS: Ferritin 20 ng/mL (8-252); Iron 41 ug/dL (50-170); Percent Iron Saturation 9 % (12-57)
== END 2024-01-15 07:17 | disposition home or self-care (01) ==
LOC: CHSLAB 07:18
PROVIDERS: PCP Family Medicine; Visit Provider Family Medicine
DX: E61.1 Iron deficiency (principal)
CPT/HCPCS: 36415; 82728; 83540; 83550; 85025